=== PATIENT | male | born 1975 | race Caucasian/White ===

== ENCOUNTER 2020-03-10 20:12 | Emergency (ER) | payer OTHER ==
[2020-03-10 20:21] VITALS: BP 162/98
[2020-03-10] MEDS ORDERED: DIPH/PERTUSS(ACELL)/TETANUS VAC/PF 0.5 ML SYR (>=10YO) IM ONE (20:42)
--- NOTE | 2020-03-10 20:43 | ER Document Report ---
ED Medical Screen (RME) - General Chief Complaint: Finger Injury Stated Complaint: FISHING HOOK IN MIDDLE FINGER Time Seen by Provider: 03/10/20 20:37 Mode of Arrival: Ambulatory Information source: Patient Notes: HPI; 41-year-old male presents to the emergency room with a fishhook in the distal aspect of his right middle finger. States was helping pull a shark out of the water and did not notice the hook that was already in the shark which then went into his finger. Unknown last tetanus shot. Patient is right-handed. PE: Alert and oriented x3. Mild distress noted. Obvious fishhook is noted to the distal aspect palmar side of the right middle finger. No active bleeding. Positive right radial pulse. Capillary refill less than 3 seconds. Neurovascularly intact. I have greeted and performed a rapid initial assessment of this patient. A comprehensive ED assessment and evaluation of the patient, analysis of test results and completion of the medical decision making process will be conducted by additional ED providers. I have specifically instructed the patient or family members with the patient to immediately return to any nursing staff should anything change in the patient's condition or with their chief complaint. - Related Data Allergies/Adverse Reactions: No Known Allergies Allergy (Unverified 03/10/20 20:39) Home Medications: Effexor, Welbutrin, Metformin Past Medical History - Social History Frequency of alcohol use: Occasional Drug Abuse: None Physical Exam - Vital signs Vitals: Temp Pulse Resp BP Pulse Ox 98.5 F 84 18 162/98 H 95 03/10/20 20:19 03/10/20 20:19 03/10/20 20:19 03/10/20 20:19 03/10/20 20:19 Course - Vital Signs Vital signs: Temp Pulse Resp BP Pulse Ox 98.5 F 84 18 162/98 H 95 03/10/20 20:19 03/10/20 20:19 03/10/20 20:19 03/10/20 20:19 03/10/20 20:19
[2020-03-10] MEDS ORDERED: DOXYCYCLINE HYCLATE 100 MG TABLET PO ONE (22:33)
[2020-03-10] MEDS ORDERED: LIDOCAINE 1%/EPINEPHRINE INJ 20 ML VIAL INJ ONE (22:34)
--- NOTE | 2020-03-10 22:56 | ER Document Report ---
HPI - HPI Time Seen by Provider: 03/10/20 20:37 Pain Level: 2 Context: Patient is a 41-year-old male who comes emergency department for chief complaint of a fishhook in the right middle finger. He patient states he was helping his friend pull of shark out of the water, when he grabbed sharply hook somehow got into his finger. He denies being bitten by the shark. He denies any other complaints. He is not up-to-date on his tetanus. He is not a diabetic, denies any past medical history. He is right-handed. Past Medical History - General Information source: Patient - Social History Smoking Status: Current Some Day Smoker Frequency of alcohol use: Occasional Drug Abuse: None Lives with: Family Family History: Reviewed & Not Pertinent Patient has homicidal ideation: No Surgical Hx: Negative - Immunizations Immunizations up to date: No Hx Diphtheria, Pertussis, Tetanus Vaccination: Yes Vertical Provider Document - CONSTITUTIONAL General Appearance: WD/WN, No Apparent Distress - HEENT HEENT: Atraumatic, Normocephalic - NECK Neck: Normal Inspection - RESPIRATORY Respiratory: Breath Sounds Normal, No Respiratory Distress - CARDIOVASCULAR Cardiovascular: Regular Rate, Regular Rhythm - GI/ABDOMEN Gastrointestinal: Abdomen Soft, Abdomen Non-Tender. negative: Abdomen Tender - BACK Back: Normal Inspection - MUSCULOSKELETAL/EXTREMETIES Musculoskeletal/Extremeties: MAEW, FROM, Tender - There is a triple pronged fishhook with 1 prong embedded in the finger pad of the right middle finger. This is superficial but almost the entire hook is buried because the hook is short. There is no swelling, current bleeding, or abnormality noted otherwise. - NEURO Level of Consciousness: Awake, Alert, Appropriate - DERM Integumentary: Warm, Dry, No Rash Course - Re-evaluation Re-evalutation: See procedure note. Finger cleaned thoroughly, hook removed completely, clean dressing was provided. Patient placed on doxycycline for coverage for vibrio infection. Tetanus updated. Discussed wound care, follow-up, return precautions. Patient states understanding and agreement. - Vital Signs Vital signs: Temp Pulse Resp BP Pulse Ox 98.5 F 84 18 162/98 H 95 03/10/20 20:19 03/10/20 20:19 03/10/20 20:19 03/10/20 20:19 03/10/20 20:19 Procedures - Additional Procedures fish hook removal Additional Procedures: Other - Right middle finger fish hook removal. I cleaned the area thoroughly with surgical cleanser, anesthesia with lidocaine was provided at about 1 cc total. The hook was still superficial, but the single prong was difficult to maneuver by itself. I used cutters to cut the 2 prongs that were not embedded into the finger away, then I used a needle haulpak driver, grasped the main part of the hook, pushed the hook forward until I could see the jak, clipped the end of the hook and jak, and then backed the hook out completely. No foreign bodies were left in on exploration, patient on procedure well. Discharge - Discharge Clinical Impression: Fish hook injury of finger Qualifiers: Encounter type: initial encounter Laterality: right Qualified Code(s): S69.91XA - Unspecified injury of right wrist, hand and finger(s), initial encounter Condition: Stable Disposition: HOME, SELF-CARE Additional Instructions: The fishhook has been removed, it is important that you take the doxycycline antibiotic as prescribed to completion, keep the area clean with soap and water, keep topical antibiotic dressing over the area. The doxycycline can cause some sunlight sensitivity so make sure you wear sunblock and use precautions. Return for any concerning symptoms including developing swelling, redness, discolored drainage, severe pain, fever, or any other concerning symptoms. Prescriptions: Doxycycline Hyclate [Vibramycin 100 mg Tablet] 100 mg PO BID 7 Days #14 tablet
== END 2020-03-10 23:15 | disposition home or self-care (01) ==
LOC: EDBD 20:12 → ER 20:12
DX: S61.242A Puncture wound with foreign body of right middle finger without damage to nail, initial encounter (principal); X58.XXXA Exposure to other specified factors, initial encounter; F17.200 Nicotine dependence, unspecified, uncomplicated
CPT/HCPCS: 99283; 90471; 90715; J3490; G0378; G0379